=== PATIENT | female | born 1995 | race Caucasian/White ===

== ENCOUNTER 2018-01-17 20:32 | Emergency (ER) | payer OTHER ==
[~2018-01-17] VITALS: Ht 160 cm; Wt 51.0 kg
[2018-01-17 20:41] VITALS: TEMP 36.7; Ht 160 cm; Wt 51.0 kg
[2018-01-17 21:26] LABS: BASO % 0.3 %; BASO ABS # 0.03 K/uL (0-0.2); EOS % 0.1 %; EOS ABS # 0.01 K/uL (0-0.5); HEMATOCRIT 41.2 % (37-47); HEMOGLOBIN 13.8 g/dL (12.0-16.0); IG# 0.02 K/uL (0.00-0.02); LYMPH ABS # 2.08 K/uL (1.2-3.4); MEAN CELL VOLUME 91.6 fL (80-100); MEAN CORPUSCULAR HEMOGLOBIN 30.7 pg (25-34); MEAN CORPUSCULAR HGB CONC 33.5 g/dl (32-36); MEAN PLATELET VOLUME 9.8 fL (7.4-10.4); MONO % 4.4 %; MONO ABS # 0.38 K/uL (0.11-0.59); NEUT ABS # 6.14 K/uL (1.4-6.5); PLATELET COUNT 248 K/uL (130-400); RED CELL DISTRIBUTION WIDTH CV 13.4 % (11.5-14.5); RED CELL DISTRIBUTION WIDTH SD 44.8 fL (36.4-46.3); WHITE BLOOD COUNT 8.66 K/uL (4.8-10.8)
--- NOTE | 2018-01-17 21:33 | EMERGENCY ROOM VISIT NOTE ---
History Report prepared by Robin: Ten Kamara Under the Supervision of: Dr. Theresa Aranda M.D. First contact with patient: 20:51 Chief Complaint: MENTAL HEALTH EVALUATION Stated Complaint: ALCOHOL OVERDOSE History of Present Illness The patient is a 22 year old female who presents to the Emergency Room with complaints of persistent suicidal ideations that started prior to arrival. The patient states that she got talked into going to a formal at [facility]. She reports that she decided to ask a boy who has been previously mean to her in the past. The patient states that her date did show up, but she reports she was insecure because he has not showed up to formals in the past. The patient states that her one friend who is a bouncer told her she was too drunk since the patient was heavily drinking tonight and kicked her out. She reports that she tried to tell her friend that she was fine, but the bouncer made her leave. The patient states that she then willingly left and tried to get back in. She reports that the bouncer would not let her back in. The patient states she started to feel as if she was not good enough because her date has ditched her in the past and her friend kicked her out. She also states that she feels embarrassed cause she feels like boys are using her for sex. She reports that she told the bouncer she has had suicidal ideations, which worried the bouncer. The patient states she has had these intermittent suicidal ideations for the past two years. She states "if it was do or my friends would leave me hanging". The patient states that she would never try to commit suicide but does report she has thought about cutting herself as a plan. She denies ever actually cutting herself in the past. The patient states that she has never talked to a complaint clerk or taken medications for depression or anxiety. Her roommate states that the patient has never talked about suicidal ideations. The patient denies drug use, falling or trauma. 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 A total of 10 systems reviewed and were otherwise negative. Past Medical & Surgical Medical Problems: (1) Suicidal thoughts Family History Patient reports no known family medical history. Social History Smoking Status: Never Smoker Alcohol Use: occasionally Drug Use: none Marital Status: single Housing Status: lives with roommate Occupation Status: [employer] student Current/Historical Medications Scheduled Control Pills ( Control Pills), 1 TAB PO DAILY Allergies Coded Allergies: No Known Allergies (Unverified , 01/17/18) Physical Exam Vital Signs Date Time Temp Pulse Resp B/P (MAP) Pulse Ox O2 Delivery O2 Flow Rate FiO2 01/18/18 02:00 89 18 109/38 98 Room Air 01/18/18 00:06 75 01/17/18 23:32 108 18 90/40 98 Room Air 01/17/18 21:38 82 18 119/79 97 01/17/18 20:41 36.7 88 16 143/90 98 Room Air 01/17/18 20:38 104 Physical Exam Vital signs reviewed. General: Well-appearing 22 year old female, tearful, anxious, intoxicated. HEENT: No scleral icterus, PERRLA, neck supple. Atraumatic. Cardiovascular: Regular rate and rhythm, no extra sounds. Pulmonary: Clear to auscultation bilaterally, normal work of breathing. Abdomen: Soft, nontender, nondistended, positive bowel sounds. Musculoskeletal: Atraumatic, no peripheral edema. Neurologic: Patient awake alert and oriented x 3 Skin: Warm, dry, no rash Psych: Positive SI without a clear plan. No HI. Medical Decision & Procedures Laboratory Results 01/17/18 21:06 Red Blood Count 4.50, Mean Corpuscular Volume 91.6, Mean Corpuscular Hemoglobin 30.7, Mean Corpuscular Hemoglobin Concent 33.5, Mean Platelet Volume 9.8, Neutrophils (%) (Auto) 71.0, Lymphocytes (%) (Auto) 24.0, Monocytes (%) (Auto) 4.4, Eosinophils (%) (Auto) 0.1, Basophils (%) (Auto) 0.3, Neutrophils # (Auto) 6.14, Lymphocytes # (Auto) 2.08, Monocytes # (Auto) 0.38, Eosinophils # (Auto) 0.01, Basophils # (Auto) 0.03 01/17/18 21:06 Test 01/17/18 21:06 01/17/18 22:20 White Blood Count 8.66 K/uL (4.8-10.8) Red Blood Count 4.50 M/uL (4.2-5.4) Hemoglobin 13.8 g/dL (12.0-16.0) Hematocrit 41.2 % (37-47) Mean Corpuscular Volume 91.6 fL (80-100) Mean Corpuscular Hemoglobin 30.7 pg (25-34) Mean Corpuscular Hemoglobin Concent 33.5 g/dl (32-36) Platelet Count 248 K/uL (130-400) Mean Platelet Volume 9.8 fL (7.4-10.4) Neutrophils (%) (Auto) 71.0 % Lymphocytes (%) (Auto) 24.0 % Monocytes (%) (Auto) 4.4 % Eosinophils (%) (Auto) 0.1 % Basophils (%) (Auto) 0.3 % Neutrophils # (Auto) 6.14 K/uL (1.4-6.5) Lymphocytes # (Auto) 2.08 K/uL (1.2-3.4) Monocytes # (Auto) 0.38 K/uL (0.11-0.59) Eosinophils # (Auto) 0.01 K/uL (0-0.5) Basophils # (Auto) 0.03 K/uL (0-0.2) RDW Standard Deviation 44.8 fL (36.4-46.3) RDW Coefficient of Variation 13.4 % (11.5-14.5) Immature Granulocyte % (Auto) 0.2 % Immature Granulocyte # (Auto) 0.02 K/uL (0.00-0.02) Anion Gap 10.0 mmol/L (3-11) Est Creatinine Clear Calc Drug Dose 64.6 ml/min Estimated GFR () 82.5 Estimated GFR (Non- 71.2 BUN/Creatinine Ratio 14.4 (10-20) Calcium Level 8.6 mg/dl (8.5-10.1) Total Bilirubin 0.4 mg/dl (0.2-1) Direct Bilirubin 0.1 mg/dl (0-0.2) Aspartate Amino Transf (AST/SGOT) 18 U/L (15-37) Alanine Aminotransferase (ALT/SGPT) 18 U/L (12-78) Alkaline Phosphatase 54 U/L (45-117) Total Protein 7.4 gm/dl (6.4-8.2) Albumin 3.5 gm/dl (3.4-5.0) Thyroid Stimulating Hormone (TSH) 0.528 uIu/ml (0.300-4.500) Salicylates Level < 1.7 mg/dl (2.8-20) Acetaminophen Level < 2 ug/ml (10-30) Ethyl Alcohol mg/dL 287.2 mg/dl (0-3) Urine Color YELLOW Urine Appearance CLEAR (CLEAR) Urine pH 5.5 (4.5-7.5) Urine Specific [place] 1.011 (1.000-1.030) Urine Protein NEG (NEG) Urine Glucose (UA) NEG (NEG) Urine Ketones TRACE (NEG) Urine Occult Blood NEG (NEG) Urine Nitrite NEG (NEG) Urine Bilirubin NEG (NEG) Urine Urobilinogen NEG (NEG) Urine Leukocyte Esterase NEG (NEG) Urine Test NEG (NEG) Urine Opiates Screen NEG (NEG) Urine Methadone, Qualitative NEG (NEG) Urine Barbiturates NEG (NEG) Urine Phencyclidine (PCP) Level NEG (NEG) Ur Amphetamine/Methamphetamine NEG (NEG) MDMA (Ecstasy) Screen NEG (NEG) Urine Benzodiazepines Screen NEG (NEG) Urine Cocaine Metabolite NEG (NEG) Urine Marijuana (THC) NEG (NEG) Laboratory results per my review. ED Course 2113: Past medical records reviewed. The patient was evaluated in room A08. A complete history and physical examination was performed. 0230: The patient was signed out to Dr. Montez at the change of shift. Medical Decision Differential diagnosis: Etiologies such as mood disorder, infection, hypoglycemia, electrolyte abnormalities, cardiac sources, intracerebral event, toxicologic, neurologic, as well as others were entertained. This patient was evaluated and appeared to be in no significant distress. She is anxious and tearful. Patient is clearly intoxicated. Her medical evaluation reveals a blood alcohol of 287. Patient will be medically cleared for psychiatric evaluation at 4 AM. Case has been signed out to Dr. Montez at the change of shift pending a more sober state. Medication Reconcilliation Current Medication List: was personally reviewed by me Blood Pressure Screening Patient's blood pressure: Elevated blood pressure Blood pressure disposition: Elevated BP felt to be situational Impression Primary Impression: Suicidal ideation Additional Impression: Alcohol intoxication Scribe Attestation The scribe's documentation has been prepared under my direction and personally reviewed by me in its entirety. I confirm that the note above accurately reflects all work, treatment, procedures, and medical decision making performed by me. Departure Information Dispostion Still a Patient Referrals No Doctor, Assigned (PCP) Patient Instructions My [facility] Problem Qualifiers
[2018-01-17 21:56] LABS: ALBUMIN 3.5 gm/dl (3.4-5.0); CALCIUM 8.6 mg/dl (8.5-10.1); CREATININE 1.1 mg/dl (0.60-1.20); POTASSIUM 3.2 mmol/L (3.5-5.1)
[2018-01-17 22:07] LABS: TOTAL PROTEIN 7.4 gm/dl (6.4-8.2)
[2018-01-17] MEDS ORDERED: BCPILLS PO (23:00)
[2018-01-18 05:12] VITALS: BP 91/43; PULSE 77; O2SAT 96
--- NOTE | 2018-01-18 05:16 | EMERGENCY ROOM VISIT NOTE ---
ED Visit Note First contact with patient: 03:40 This case was signed out to me at change of shift awaiting sobriety. Once the patient was sober, the staff from [facility]. evaluated her. She is currently feeling well and denies any suicidal thoughts or plans. The patient has no history of mental health problems or previous suicide attempts. I spoke with the patient at length and she explained that she made those comments as a result of being intoxicated. She denies any history of depression or previous thoughts of suicide. The patient's friends arrived here in the emergency department. I spent some time talking to them as well. They were able to help her safety plan. I suggested that she avoid alcohol for the next 1-2 weeks and follow-up with [facility] on [place].
== END 2018-01-18 05:24 | disposition home or self-care (01) ==
LOC: C.EDA 20:35
DX: R45.851 Suicidal ideations (principal); F10.920 Alcohol use, unspecified with intoxication, uncomplicated; Z79.3 Long term (current) use of hormonal contraceptives